=== PATIENT | male | born 1975 | race American Indian/Alaskan Native ===

== ENCOUNTER 2018-02-03 09:44 | Emergency (ER) | payer MEDICAID, SELFPAY ==
[2018-02-03 09:45] VITALS: BMI 28.0
[2018-02-03 10:00] VITALS: TEMP 98.4
[2018-02-03] MEDS ORDERED: Sodium Chloride 0.9% 1,000 ML IV STA (10:22)
[2018-02-03] MEDS ORDERED: Belladonna-Phenobarbital PO STA (10:22)
[2018-02-03 10:41] LABS: BASO # 0.1 K/uL (0.0-0.2); BASO % 1.3 % (0.0-2.0); EOS # 0.1 K/uL (0.0-0.7); EOS % 1.9 % (0.0-4.0); HEMOGLOBIN 13.6 g/dL (12.0-18.0); LYMPH # 2.2 K/uL (1.0-4.3); LYMPH % 28.6 % (20.0-40.0); MEAN CELL VOLUME 83.7 fL (80.0-94.0); MEAN CORPUSCULAR HEMOGLOBIN 29.7 pg (27.0-31.0); MEAN CORPUSCULAR HGB CONC 35.4 g/dL (33.0-37.0); MEAN PLATELET VOLUME 8.1 fL (7.2-11.7); MONO % 13.3 % (0.0-10.0); NEUT # 4.2 K/uL (1.8-7.0); NEUT % 54.9 % (50.0-75.0); NRBC % 0.1 % (0.0-2.0); RBC 4.6 Mil/uL (4.40-5.90); RED CELL DISTRIBUTION WIDTH 13.9 % (11.5-14.5); WHITE BLOOD COUNT 7.7 K/uL (4.8-10.8)
[2018-02-03] MEDS ORDERED: Sodium Chloride 0.9% 1,000 ML ONE (10:50)
[2018-02-03] MEDS ORDERED: Belladonna-Phenobarbital ONE (10:50)
[2018-02-03 10:51] LABS: ALB/GLOB RATIO 1.3 (1.0-2.1); ALBUMIN 3.8 g/dL (3.5-5.0); ALT/SGPT 46 U/L (21-72); AST/SGOT 24 U/L (17-59); BLOOD UREA NITROGEN 12 mg/dL (9-20); CALCIUM 8.4 mg/dl (8.6-10.4); GFR NON-AFRICAN AMERICAN > 60; LIPASE 37 U/L (23-300)
[2018-02-03 11:01] LABS: URINE BILIRUBIN NEGATIVE (NEGATIVE); URINE BLOOD NEGATIVE (NEGATIVE); URINE CLARITY Clear (Clear); URINE COLOR Yellow (YELLOW); URINE GLUCOSE (UA) NORMAL (Normal); URINE LEUKOCYTE ESTERASE NEG Leu/uL (Negative); URINE PROTEIN NEGATIVE (NEGATIVE); URINE UROBILINOGEN NORMAL mg/dL (0.2-1.0)
--- NOTE | 2018-02-03 12:23 | C.PDOC ---
History Of Present Illness 43 y/o male presents to the ED complaining of vomiting, diarrhea, and subjective fever that began 1 week ago. Patient states he had eaten a restaurant, then woke up with symptoms the next day. Now reports the vomiting has subsided, but the watery non-bloody diarrhea is persistent. Patient also complains of intermittent abdominal cramping. Currently he denies any fever, chills, hematochezia, nausea, or other complaints. Time Seen by Provider: 02/03/18 10:03 Chief Complaint (Nursing): Abdominal Pain History Per: Patient History/Exam Limitations: no limitations Onset/Duration Of Symptoms: Days Current Symptoms Are (Timing): Better Context: Food Associated Symptoms: Vomiting, Diarrhea Past Medical History Reviewed: Historical Data, Nursing Documentation, Vital Signs Vital Signs: Last Vital Signs Temp 98.4 F 02/03/18 09:57 Pulse 91 H 02/03/18 09:57 Resp 18 02/03/18 09:57 BP 174/108 H 02/03/18 09:57 Pulse Ox 98 02/03/18 09:57 - Medical History PMH: HTN Surgical History: Appendectomy Family History: States: No Known Family Hx - Social History Hx Tobacco Use: Yes Hx Alcohol Use: Yes Hx Substance Use: No - Immunization History Hx Tetanus Toxoid Vaccination: No Hx Influenza Vaccination: No Hx Pneumococcal Vaccination: No Review Of Systems Constitutional: Negative for: Fever, Chills, Sweats Cardiovascular: Negative for: Palpitations Respiratory: Negative for: Shortness of Breath Gastrointestinal: Positive for: Abdominal Pain (cramping), Diarrhea. Negative for: Nausea, Vomiting, Hematochezia Genitourinary: Negative for: Dysuria, Hematuria Physical Exam - Physical Exam Appears: Non-toxic, No Acute Distress Skin: Normal Color, Warm, Dry Head: Atraumatic, Normacephalic Eye(s): bilateral: Normal Inspection, PERRL, EOMI Oral Mucosa: Moist Neck: Normal ROM Cardiovascular: Rhythm Regular, No Murmur Respiratory: Normal Breath Sounds, No Accessory Muscle Use Gastrointestinal/Abdominal: Soft, Tenderness (Mild diffuse tenderness), No Distention, No Guarding, No Rebound Back: No CVA Tenderness Extremity: Bilateral: Atraumatic, Normal Color And Temperature, Normal ROM Neurological/Psych: Oriented x3, Normal Speech ED Course And Treatment - Laboratory Results Result Diagrams: 02/03/18 10:35 02/03/18 10:35 O2 Sat by Pulse Oximetry: 98 (RA) Pulse Ox Interpretation: Normal Progress Note: Blood work and urine sent to the lab. IVF hydration, Protonix, , and Toradol administered. Labs reviewed, and are unremarkable. Patient sts he disn't take his BP meds for the last 2 days. patient sts he feels better now and is stable to be d/c home. Patient was instructed to take his BP medications every day. Disposition - Disposition Referrals: Jason Marina MD [Staff Provider] - Disposition: HOME/ ROUTINE Disposition Time: 12:57 Condition: STABLE Additional Instructions: Follow up with your PMD and [facility] within 1-2 days. Return to ED if feel worse. Prescriptions: Atropine/Hyoscyamine [] 1 - 2 tab PO .Q6-8H #40 tab Famotidine [Pepcid] 20 mg PO BID #20 tab Instructions: Viral Gastroenteritis Forms: [employer] (Greenlandic) - Clinical Impression Clinical Impression: Gastroenteritis - PA / [employer]ER / Resident Statement MD/DO has reviewed & agrees with the documentation as recorded. - Scribe Statement The provider has reviewed the documentation as recorded by the Scribe (Violet Gonzales) All medical record entries made by the Scribe were at my direction and personally dictated by me. I have reviewed the chart and agree that the record accurately reflects my personal performance of the history, physical exam, medical decision making, and the department course for this patient. I have also personally directed, reviewed, and agree with the discharge instructions and disposition.
[2018-02-03 12:36] VITALS: BP 150/99; PULSE 77; RESP 17
[2018-02-03 13:03] VITALS: O2SAT 98
== END 2018-02-03 13:42 | disposition home or self-care (01) ==
LOC: C.ER 09:44
DX: K52.9 Noninfective gastroenteritis and colitis, unspecified (principal)
CPT/HCPCS: 80053; 81001; 83690; 83735; 85025; 96361; 96374; 96375; 99284; C9113; J1885; J7030

== ENCOUNTER 2018-02-11 00:04 | Emergency (ER) | payer MEDICAID ==
[2018-02-11 00:04] VITALS: BMI 28.0
[2018-02-11] MEDS ORDERED: Sodium Chloride 0.9% 500 ML IV ONE ×2 (00:49→01:05)
[2018-02-11 01:18] LABS: BASO # 0.1 K/uL (0.0-0.2); BASO % 0.5 % (0.0-2.0); EOS # 0.1 K/uL (0.0-0.7); EOS % 0.8 % (0.0-4.0); HEMOGLOBIN 13.4 g/dL (12.0-18.0); LYMPH # 2.3 K/uL (1.0-4.3); LYMPH % 21.7 % (20.0-40.0); MEAN CELL VOLUME 83.1 fL (80.0-94.0); MEAN CORPUSCULAR HEMOGLOBIN 29.4 pg (27.0-31.0); MEAN CORPUSCULAR HGB CONC 35.3 g/dL (33.0-37.0); MEAN PLATELET VOLUME 8.2 fL (7.2-11.7); MONO # 1.1 K/uL (0.0-0.8); MONO % 9.9 % (0.0-10.0); NEUT # 7.1 K/uL (1.8-7.0); NEUT % 67.1 % (50.0-75.0); RBC 4.57 Mil/uL (4.40-5.90); RED CELL DISTRIBUTION WIDTH 14.2 % (11.5-14.5); WHITE BLOOD COUNT 10.6 K/uL (4.8-10.8)
[2018-02-11 01:43] LABS: SQUAMOUS EPITHIAL < 1 /hpf (0-5); URINE BILIRUBIN NEGATIVE (NEGATIVE); URINE BLOOD NEGATIVE (NEGATIVE); URINE CLARITY Clear (Clear); URINE COLOR Yellow (YELLOW); URINE GLUCOSE (UA) NORMAL (Normal); URINE LEUKOCYTE ESTERASE NEG Leu/uL (Negative); URINE PROTEIN 1+ mg/dL (NEGATIVE); URINE UROBILINOGEN NORMAL mg/dL (0.2-1.0)
[2018-02-11 01:44] LABS: ALB/GLOB RATIO 1.4 (1.0-2.1); ALBUMIN 4.3 g/dL (3.5-5.0); ALT/SGPT 40 U/L (21-72); AST/SGOT 21 U/L (17-59); BLOOD UREA NITROGEN 14 mg/dL (9-20); CALCIUM 8.8 mg/dl (8.6-10.4); GFR NON-AFRICAN AMERICAN > 60; LIPASE 292 U/L (23-300)
[2018-02-11] MEDS ORDERED: Iodixanol 320 MG/ML 100 ML BOTTLE IV ONE (01:53)
[2018-02-11] MEDS ORDERED: Potassium Chloride 20 mEq ER Tab PO STA (02:04)
--- NOTE | 2018-02-11 02:56 | C.PDOC ---
History Of Present Illness 43 year old male presents to the ER with a complaint of intermittent diarrhea for the past 2 weeks. Patient was seen in the ER 2 weeks ago for the same complaint, at the time he believed it was due to food poisoning but states it has not resolved. Patient reports he has intermittent abdominal cramping preceding diarrhea but denies any cramping at this time as well as bloody stools, fever, chills, recent travel, or sick contact. Time Seen by Provider: 02/11/18 00:38 Chief Complaint (Nursing): Abdominal Pain History Per: Patient History/Exam Limitations: no limitations Onset/Duration Of Symptoms: Days (x2 weeks), Intermittent Episodes Current Symptoms Are (Timing): Still Present Quality Of Discomfort: Cramping Associated Symptoms: Diarrhea. denies: Fever, Chills, Other (Bloody stool) Exacerbating Factors: None Alleviating Factors: None Recent travel outside of the [place]: No Past Medical History Reviewed: Historical Data, Nursing Documentation, Vital Signs Vital Signs: Last Vital Signs Temp 99.1 F 02/11/18 00:12 Pulse 98 H 02/11/18 01:22 Resp 16 02/11/18 01:22 BP 148/97 H 02/11/18 01:22 Pulse Ox 99 02/11/18 01:22 - Medical History PMH: HTN Surgical History: Appendectomy Family History: States: Unknown Family Hx - Social History Hx Tobacco Use: Yes Hx Alcohol Use: Yes Hx Substance Use: No - Immunization History Hx Tetanus Toxoid Vaccination: No Hx Influenza Vaccination: No Hx Pneumococcal Vaccination: No Review Of Systems Constitutional: Negative for: Fever, Chills Cardiovascular: Negative for: Chest Pain, Palpitations Respiratory: Negative for: Cough, Shortness of Breath Gastrointestinal: Positive for: Diarrhea. Negative for: Abdominal Pain, Other (Bloody stool) Genitourinary: Negative for: Dysuria, Hematuria Neurological: Negative for: Weakness, Numbness Physical Exam - Physical Exam Appears: Non-toxic Skin: Normal Color, Warm, Dry Head: Atraumatic, Normacephalic Eye(s): bilateral: Normal Inspection Oral Mucosa: Moist Chest: Symmetrical, No Tenderness Cardiovascular: Rhythm Regular Respiratory: Normal Breath Sounds, No Rales, No Rhonchi, No Wheezing Gastrointestinal/Abdominal: Soft, No Tenderness, Other (Obese) Rectal: Other (Refused) Back: No CVA Tenderness Neurological/Psych: Oriented x3, Normal Speech ED Course And Treatment - Laboratory Results Result Diagrams: 02/11/18 01:10 02/11/18 01:10 O2 Sat by Pulse Oximetry: 99 (Room air) Pulse Ox Interpretation: Normal (r) - CT Scan/US CT abd/pel Other Rad Studies (CT/US): Read By Radiologist, Radiology Report Reviewed CT/US Interpretation: CT SCAN OF THE ABDOMEN AND PELVIS WITH CONTRAST. CLINICAL HISTORY: Abdominal pain. TECHNIQUE: Multiple axial and coronal CT images were obtained through the abdomen and pelvis after administration of intravenous contrast material. COMPARISON: 10/09/2013. COMMENTS: Prior appendectomy. Significant diffuse thickening of the ascending, transverse and proximal descending colon. Mild diffuse thickening of the terminal ileum, not present on prior exam. Minimal thickening surrounding the pancreatic tail. The liver is o f uniform attenuation without mass or defect. There is no intra or extrahepatic biliary ductal dilatation. The spleen is normal. The gallbladder is within normal limits. There is no evidence of adrenal mass. Both kidneys demonstrate prompt and equal nephrograms. The kidneys are normal in size, shape and configuration. There is no evidence of renal or ureteral mass. No renal or ureteral calculi are identified. There is no hydroureter or hydronephrosis. There is no bowel wall thickening. No evidence for small or large bowel obstruction. There is no evidence of abdominal ascites or lymphadenopathy. There is no evidence of intrinsic or extrinsic bladder mass. There is no pelvic ascites or lymphadenopathy. Images of the lung bases show no evidence of pleural or parenchymal mass. There are no pleural effusions. The bony structures are free of lytic or blastic lesions. Fat containing umbilical hernia without incarceration. IMPRESSION: Uncomplicated colitis, not present on prior exam. Mild, uncomplicated acute inflammatory changes of the terminal ileum. Mild changes of acute pancreatitis at the level of the pancreatic tail. No fluid collection is noted. Progress Note: CT abd/pel, blood work, and urinalysis ordered. Bentyl and IV fluids administered. Patient found to have low potassium, K-dur administered. On reevaluation, patient reports improvement of symptoms, he is resting comfortably in the ER in no acute distress, vitals are stable. Lab and imaging results discussed with patient, will start on cipro and flagyl and discharge with Rx and instructions to follow up with PMD or return if symptoms worsen. Disposition Counseled Patient/Family Regarding: Diagnosis, Need For Followup - Disposition Referrals: [facility] [Outside] Disposition: HOME/ ROUTINE Disposition Time: 04:11 Condition: STABLE Additional Instructions: Increase fluids Avoid dairy and solid foods for at leasy 24-48 hrs Follow up with PMD or in clinic for reevaluation and BP management Return to ER if fever, black stools, vomiting, severe abdominal pain or worse Prescriptions: amLODIPine [Norvasc] 10 mg PO DAILY #20 tab Ciprofloxacin [Cipro] 1 tab PO BID #14 tab metroNIDAZOLE [Flagyl] 500 mg PO BID #14 tab Instructions: Diarrhea in Adolescents and Adults Forms: [employer] (Kyrgyz) - POA Present On Arrival: Blood Incompatibility - Clinical Impression Clinical Impression: Colitis - PA / H[employer]UTOR / Resident Statement MD/DO has reviewed & agrees with the documentation as recorded. - Scribe Statement The provider has reviewed the documentation as recorded by the Scribe Myles Matson All medical record entries made by the Scribe were at my direction and personally dictated by me. I have reviewed the chart and agree that the record accurately reflects my personal performance of the history, physical exam, medical decision making, and the department course for this patient. I have also personally directed, reviewed, and agree with the discharge instructions and disposition.
[2018-02-11] MEDS ORDERED: Potassium Chloride 20 mEq ER Tab PO ONE (02:59)
[2018-02-11 04:03] VITALS: TEMP 98.2
[2018-02-11 04:15] VITALS: O2SAT 99
[2018-02-11 04:40] VITALS: BP 143/96; PULSE 106; RESP 18
--- NOTE | 2018-02-11 12:32 | CT ---
Date of service: 02/11/2018 PROCEDURE: CT Abdomen and Pelvis. HISTORY: Abdominal pain, diarrhea COMPARISON: Comparison made with prior CT scan abdomen pelvis 12/10/2012. TECHNIQUE: Contiguous axial images of the abdomen and pelvis following intravenous injection of approximately 100 cc Visipaque 320 contrast material. Additional 2D sagittal and coronal reformats generated. Radiation dose: Total exam DLP = 672.27 mGy-cm. This CT exam was performed using one or more of the following dose reduction techniques: Automated exposure control, adjustment of the mA and/or kV according to patient size, and/or use of iterative reconstruction technique. FINDINGS: LOWER THORAX: Unre lung bases clear. No infiltrate effusion or basilar pneumothorax. Heart size within range of normal. No significant pericardial effusion. Small hiatal hernia. LIVER: Liver exhibits normal size. Minimal fatty hepatic infiltration. No obvious hepatic mass collection or calcification. Portal and splenic veins are opacified.. GALLBLADDER AND BILE DUCTS: Gallbladder physiologically distended. No evidence of intraluminal gallbladder calculi. PANCREAS: There is mild infiltration changes seen in the peripancreatic fat about the distal body and pancreatic tail region. Findings could represent a mild pancreatitis. Underlying pancreatic atrophy with fatty replacement also felt to be present. SPLEEN: Spleen exhibits normal size and attenuation pattern without mass collection or calcification. ADRENALS: Slightly nodular appearing left adrenal gland.. KIDNEYS AND URETERS: Unrem kidneys demonstrate relatively symmetric nephrograms. No evidence of nephrolithiasis or hydronephrosis. No obvious renal masses or collections. BLADDER: Grossly urinary bladder is incompletely distended which may account for slight thick-walled appearance. Muscular hypertrophy may contribute. Correlation with urinalysis could be performed to exclude cystitis which is less likely in a male patient. REPRODUCTIVE: Unremarkable as visualized APPENDIX: Unremarkable. BOWEL: The stomach is incompletely distended which presumably in part accounts for slight thick-walled appearance. There is abnormal wall thickening of the terminal ileum, ascending and transverse colon consistent with a nonspecific ileocolitis.. Rule out infectious versus inflammatory etiology.. There is also mild wall thickening of the sigmoid colon with a few scattered colonic diverticula. Findings in this location could be secondary to incomplete distention and muscular hypertrophy and unopacified stool however the possibility of chronic wall thickening due to diverticular disease not excluded. Less wall thickening of the remaining colon.. There also wall thickening of the terminal ileum the . PERITONEUM: Unremarkable. No fluid collection. No free air. Small fat containing umbilical hernia. LYMPH NODES: Unremarkable. No enlarged lymph nodes. VASCULATURE: Unremarkable. No aortic aneurysm. No aortic atherosclerotic calcification or mural plaque present. BONES: Minor multilevel degenerative spondylosis of the lower thoracic and lumbar spine. OTHER FINDINGS: None. IMPRESSION: Findings consistent with colitis involving the cecum, ascending and transverse colon ab. Abnormal wall thickening of the terminal ileum is present as well. Findings are consistent with a nonspecific colitis. Few scattered colonic diverticula seen along the sigmoid colon which is also somewhat thickened however these findings could be in part due to combination of incomplete distension peristalsis and unopacified stool. The possibility of muscular hypertrophy related to chronic diverticular disease may contribute.. Mild infiltration changes seen in the peripancreatic fat about the distal body and pancreatic tail. Rule out mild pancreatitis. Mild fatty hepatic infiltration.
== END 2018-02-11 04:41 | disposition home or self-care (01) ==
LOC: C.ER 00:04
DX: K52.9 Noninfective gastroenteritis and colitis, unspecified (principal)
CPT/HCPCS: 74177; 80053; 81001; 83690; 85025; 99285; J7040; Q9967